=== PATIENT | male | born 1995 | race African-American/Black ===

== ENCOUNTER 2023-03-20 17:48 | Emergency (ER) | payer MEDICAID ==
[~2023-03-20] VITALS: Ht 182.9 cm; Wt 83.9 kg
[2023-03-20 18:45] VITALS: BP_SYST 137; PULSE 76; RESP 18; TEMP 98.2; O2SAT 99
[2023-03-20] MEDS ORDERED: IBUPROFEN 600 MG TABLET PO ONE (19:00)
[2023-03-20 20:21] VITALS: BP_SYST 137; PULSE 76; RESP 18; TEMP 98.2; O2SAT 99
== END 2023-03-20 20:19 | disposition home or self-care (01) ==
LOC: SED 17:48
DX: S62.336A Displaced fracture of neck of fifth metacarpal bone, right hand, initial encounter for closed fracture (principal); Z79.899 Other long term (current) drug therapy; W22.09XA Striking against other stationary object, initial encounter; Y93.89 Activity, other specified; Y92.89 Other specified places as the place of occurrence of the external cause; Y99.8 Other external cause status
CPT/HCPCS: 99283